=== PATIENT | male | born 1960 | race Caucasian/White ===

== ENCOUNTER → 2023-12-14 | Outpatient (CLI) | payer BC ==
--- NOTE | 2023-12-14 16:38 | US ---
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 VESSELS IMAGED: Common Femoral Vein Deep Femoral Vein Greater Saphenous Vein * Femoral Vein Popliteal Vein Small Saphenous Vein * Proximal Calf Veins (* superficial vessels) The deep venous system of the right lower extremity from the common femoral vein to the proximal calf veins is patent and compressible with augmentable flow with normal waveforms. IMPRESSION: No evidence of right lower extremity DVT from the common femoral vein to the proximal calf veins
--- NOTE | 2023-12-14 16:43 | US ---
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; Wounds right anterior lower cárednas, right anterior/medial ankle, right lateral ankle x 3 weeks History of: Smoker: current Hypertension: yes Diabetic: no Hyperlipidemia: yes TIA/CVA: no Previous Vascular Surgery: no NM: no Vascular Ulcers: yes Claudication: no Gangrene: no Doppler Waveforms: Right: Triphasic Left: Triphasic Pulse Volume Recording: Normal waveforms Pressure Gradients: Normal Right Brachial Pressure: 163 Left Brachial Pressure: 160 Ankle-Brachial Indices: Right: 1.23 Left: 1.17 (Vessel hardening > 1.4; Normal 0.9 - 1.4, Moderate 0.7 - 0.9, Severe 0.5-0.7) Toe Brachial Indices: Right: 0.66 Left: 0.81 IMPRESSION: No evidence of lower extremity peripheral arterial disease
== END | disposition home or self-care (01) ==
LOC: RADUSWWP 13:28
PROVIDERS: ATTEND Nurse Practitioner Family
DX: I70.232 Atherosclerosis of native arteries of right leg with ulceration of calf (principal); L97.812 Non-pressure chronic ulcer of other part of right lower leg with fat layer exposed; I10 Essential (primary) hypertension; E78.5 Hyperlipidemia, unspecified; F17.218 Nicotine dependence, cigarettes, with other nicotine-induced disorders
CPT/HCPCS: 93923

== ENCOUNTER → 2024-01-17 | Outpatient (CLI) | payer BC ==
--- NOTE | 2024-01-17 19:36 | XR ---
EXAMINATION TYPE: XR ankle complete RT DATE OF EXAM: 01/17/2024 COMPARISON: NONE HISTORY: 63-year-old male with nonhealing wound at the medial malleolus. L97.812 NON-PRS CHRONIC ULC ER OTH PRT R LOW LEG W/FAT LAYER TECHNIQUE: 3 views FINDINGS: Lateral plate and screw fixation of the distal fibula. Transyndesmotic tight rope fixation also noted . Ankle mortise appears congruent. Talar dome is intact. There is a wound along the medial aspect of the distal leg and ankle. Osteopenia. Mild anterior soft tissue swelling. No acute fracture, subluxat ion, dislocation. No lytic destruction or periostitis is seen. IMPRESSION: 1. Previous lateral plate and screw fixation of the distal fibula as well as trans-syndesmotic tight rope fixation. 2. Medial wound. No radiographic evidence for underlying osteomyelitis or acute osseous abnormality.
== END | disposition home or self-care (01) ==
LOC: RADXRMAIN 15:46
PROVIDERS: ATTEND Nurse Practitioner Family
DX: L97.812 Non-pressure chronic ulcer of other part of right lower leg with fat layer exposed (principal)